=== PATIENT | male | born 1990 | race Caucasian/White ===

== ENCOUNTER 2019-04-16 05:19 | Emergency (ER) | payer MEDICAID, OTHER ==
--- NOTE | 2019-04-16 05:56 | ED Physician Chart ---
ED Chief Complaint/HPI - Patient Information Date Seen:: 04/16/19 Time Seen:: 05:45 Chief Complaint:: urethral discharge History of Present Illness:: fpr last 4 weeks patient has had a slight clear urethral discharge primarily on his underwear. He has had to push hard when he urinates. No genital lesions. Last sexual contact was about 2 months ago. Allergies:: Allergies Allergy/AdvReac Type Severity Reaction Status Date / Time No Known Allergies Allergy Verified 04/16/19 05:39 Vitals:: Vital Signs - 8 hr 04/16/19 05:25 Temp 99.6 F HR 122 RR 20 BP 173/105 O2 Sat % 96 Historian:: Patient Review:: Nurse's Note Reviewed ED Review of Systems - Review of Systems General/Constitutional: No fever, No chills Skin: No skin lesions Head: No headache Eyes: No loss of vision ENT: No earache Neck: No neck pain, No swelling Cardio Vascular: No chest pain, No palpitations Pulmonary: No SOB GI: No nausea, No vomiting, No diarrhea G/U: Other (see history) Musculoskeletal: No bone or joint pain Endocrine: No polyuria Psychiatric: No prior psych history ED Past Medical History - Past Medical History Past Medical History: Asthma/COPD Family History: Heart disease, Other (cerebrovascular accident) Social History: Non Smoker, No Alcohol Surgical History: None Psychiatricy History: None Medication: Reviewed Family Medical History - Family Member Father Hx Family Stroke: Yes Other Medical History: HEART FAILURE ED Physical Exam - Physical Examination General/Constitutional: Well-developed, well-nourished, Alert, No distress Head: Atraumatic Eyes: Lids, conjuctiva normal Skin: Nl inspection, No rash ENMT: External ears, nose nl Neck: No nuchal rigidity Respiratory: Nl effort/Exclusion Cardio Vascular: RRR, No murmur, gallop, rubs GI: No tenderness/rebounding/guarding : No CVA tenderness Extremities: No tenderness or effusion Neuro/Psych: No focal deficits ED Septic Shock - . Is Septic Shock (SBP<90, OR Lactate>4 mmol\L) present?: No - <6hrs of presentation: Vital Signs: Vital Signs - 8 hr 04/16/19 05:25 Temp 99.6 F HR 122 RR 20 BP 173/105 O2 Sat % 96 ED Reassessment (Disposition) - Reassessment Reassessment Condition:: Unchanged - Diagnosis Diagnosis:: Urethritis - Aftercare/Follow up Instructions Aftercare/Follow-Up Instructions:: Refer to Discharge Instructions Medication Prescribed:: Doxycycline 100 mg twice a day for 10 days - Patient Disposition Discharge/Transfer:: Home Condition at Disposition:: Stable, Unchanged
[2019-04-16 06:40] LABS: URINE SOURCE MIDSTREAM
[2019-04-16 06:51] LABS: URINE BILIRUBIN NEGATIVE (NEGATIVE); URINE BLOOD NEGATIVE (NEGATIVE); URINE GLUCOSE (UA) NEGATIVE (NEGATIVE); URINE KETONE NEGATIVE (NEGATIVE); URINE LEUKOCYTE ESTERASE NEGATIVE (NEGATIVE); URINE MICROSCOPIC INDICATED? YES; URINE NITRATE NEGATIVE (NEGATIVE); URINE PH 5.5 (4.6 - 8.0); URINE PROTEIN TRACE mg/dL (NEGATIVE); URINE UROBILINOGEN 0.2 E.U./dL (0.2 - 1.0)
[2019-04-16 07:03] LABS: URINE COLOR YELLOW
[2019-04-16 07:04] LABS: URINE CLARITY CLEAR (CLEAR)
[2019-04-16 07:05] LABS: URINE BACTERIA FEW /hpf (NONE SEEN); URINE WBC 0-2 /hpf (0-5)
[2019-04-16 07:12] LABS: URINE RBC 0-2 /hpf (0-5)
[2019-04-16 07:13] LABS: URINE EPITHELIAL CELLS NONE SEEN /lpf (FEW)
== END 2019-04-16 07:23 | disposition home or self-care (01) ==
LOC: ER 05:19
DX: N34.2 Other urethritis (principal); J44.9 Chronic obstructive pulmonary disease, unspecified
CPT/HCPCS: 81001-TC; J0696; J2001; Z7502